=== PATIENT | female | born 1995 ===

== ENCOUNTER 2018-11-04 10:21 | Emergency (ER) | payer OTHER ==
[~2018-11-04] VITALS: Ht 152.4 cm; Wt 47.6 kg
[2018-11-04] MEDS ORDERED: SINGULAIR10 MG (10:29)
== END 2018-11-04 19:58 | disposition home or self-care (01) ==
LOC: ER 10:21
DX: K59.09 Other constipation (principal); R10.2 Pelvic and perineal pain